=== PATIENT | male | born 1955 | race Caucasian/White ===

== ENCOUNTER 2017-07-26 11:30 | Day surgery (SDC) | payer OTHER | END 2017-07-26 19:13 | disposition home or self-care (01) | LOC: GIL 11:30 | DX: K21.9 Gastro-esophageal reflux disease without esophagitis (principal); I10 Essential (primary) hypertension; J44.9 Chronic obstructive pulmonary disease, unspecified; I25.10 Atherosclerotic heart disease of native coronary artery without angina pectoris; I50.9 Heart failure, unspecified; J45.909 Unspecified asthma, uncomplicated | CPT/HCPCS: 43235 ==

== ENCOUNTER 2018-08-01 11:28 | Day surgery (SDC) | payer OTHER ==
[2018-08-01] MEDS ORDERED: PROPOFOL 20 ML (15:01)
== END 2018-08-01 16:00 | disposition home or self-care (01) ==
LOC: GIL 11:28
DX: I85.00 Esophageal varices without bleeding (principal); I10 Essential (primary) hypertension; I25.10 Atherosclerotic heart disease of native coronary artery without angina pectoris; J44.9 Chronic obstructive pulmonary disease, unspecified
CPT/HCPCS: 43239; 88305; 88312